=== PATIENT | female | born 1940 | race Caucasian/White ===

== ENCOUNTER → 2020-02-03 | Outpatient (CLI) | payer MEDICARE ==
[~2020-02-03] MED LIST: ACET325T26 PO; ALPR0.254 PO; AMOX-291 PO; ASCO10004 PO; ASPI-496 PO; ASPI-650 PO; CA C1TAB62 PO; DIPH25CA26 PO; MULT-6 PO; NAPR220C2 PO; OMEG500C3 PO; OXYC5TAB3 PO; ROSU5TAB PO; UBID100C24 PO; VERA120T8 PO; [UNRECOGNIZED DRUG - REMARK]
== END | disposition home or self-care (01) ==
LOC: CFH 13:28
PROVIDERS: ATTEND Internal Medicine Cardiovascular Disease
DX: I08.3 Combined rheumatic disorders of mitral, aortic and tricuspid valves (principal); I42.9 Cardiomyopathy, unspecified
CPT/HCPCS: 93306